=== PATIENT | female | born 1985 | race Hispanic/Latino ===

== ENCOUNTER 2024-07-12 10:40 | Emergency (ER) | payer SELFPAY ==
[~2024-07-12] VITALS: Ht 160 cm; Wt 115.7 kg
[2024-07-12 10:44] VITALS: TEMP 97.8
[2024-07-12 11:15] LABS: BASOPHILS % 0.2 % (0.0-1.0); HEMOGLOBIN 11.5 g/dL (12.0-16.0); LYMPHOCYTES # (AUTO) 1.6 (1.0-3.2); LYMPHOCYTES % 14.1 % (18.0-39.1); MEAN CORPUSCULAR HGB CONC 31.1 g/dL (31-35); MONOCYTES # (AUTO) 0.7 (0.2-0.8); NEUTROPHILS # (AUTO) 8.9 (2.1-6.9); NEUTROPHILS % 79.3 % (38.7-80.0); PLATELET COUNT 328 x10e3/uL (140-360); RED CELL DISTRIBUTION WIDTH 15.5 % (11.7-14.4); WHITE BLOOD COUNT 11.23 x10e3/uL (4.8-10.8)
[2024-07-12] MEDS: METOCLOPRAMIDE HCL 10 MG/2ML VIAL IV ONE (11:16)
[2024-07-12] MEDS: DIPHENHYDRAMINE HCL INJ 50 MG/ML VIAL IV ONE (11:16)
[2024-07-12] MEDS: KETOROLAC TROMETHAMINE 30 MG/ML VIAL IV STA (11:16)
[2024-07-12] MEDS: SODIUM CHLORIDE 0.9% 1000ML 1,000 ML IV STA (11:17)
[2024-07-12 11:35] LABS: CORONAVIRUS COVID-19 AG NEGATIVE (NEGATIVE); INFLUENZA A AG NEGATIVE (NEGATIVE); INFLUENZA B AG NEGATIVE (NEGATIVE)
[2024-07-12 11:41] LABS: ALANINE AMINOTRANSFERASE 12 IU/L (0-55); ALBUMIN 3.1 g/dL (3.5-5.0); ALBUMIN/GLOBULIN RATIO 0.6 (0.8-2.0); ALKALINE PHOSPHATASE 81 IU/L (40-150); BILIRUBIN,TOTAL 0.4 mg/dL (0.2-1.2); BLOOD UREA NITROGEN 12 mg/dL (7-26); BUN/CREATININE RATIO 16 (6-25); CARBON DIOXIDE 23 mmol/L (22-29); CHLORIDE 98 mmol/L (98-107); CREATININE, SERUM 0.73 mg/dL (0.57-1.11); EST GLOMERULAR FILTRATION RATE 109 ML/MIN (>=60); GLUCOSE 217 mg/dL (74-118); MAGNESIUM 1.8 MG/DL (1.3-2.1); SODIUM 132 mmol/L (136-145); TOTAL PROTEIN 8.1 g/dL (6.5-8.1)
[2024-07-12] MEDS: DEXAMETHASONE SOD PHOS 10 MG/1 ML VIAL IV ONE (12:13)
[2024-07-12] MEDS: LEVETIRACETAM 1500 MG/100 ML 100 ML IV ONE (12:13)
[2024-07-12] MEDS: VANCOMYCIN 1.25GM/250 ML (PEG) 250 ML IV ONE (12:33)
[2024-07-12] MEDS: MEROPENEM 1 GM in SODIUM CHLORIDE 0.9% 100 ML IV ONE (12:33)
[2024-07-12 15:00] VITALS: PULSE 69; RESP 18; O2SAT 100
== END 2024-07-12 15:25 | disposition other institution (70) ==
LOC: ER 10:46
DX: R51.9 Headache, unspecified (principal); G06.0 Intracranial abscess and granuloma; H70.92 Unspecified mastoiditis, left ear; E11.65 Type 2 diabetes mellitus with hyperglycemia; Z11.52 Encounter for screening for COVID-19
CPT/HCPCS: 36415; 70450; 80053; 83036; 83735; 84702; 85025; 87040; 87428; 99285; J1100; J1200; J1885; J2185; J2765; J7030; J7050